=== PATIENT | female | born 1935 | race Two or more races ===

== ENCOUNTER 2019-01-17 11:09 | Emergency (ER) | payer MEDICARE, BC ==
[~2019-01-17] VITALS: Ht 162.6 cm; Wt 54.4 kg
[2019-01-17] MEDS ORDERED: cloNIDine HCL 0.1 MG TABLET PO ONE (11:45)
--- NOTE | 2019-01-17 12:30 | RAD ---
EXAM: CT HEAD WITHOUT IV CONTRAST CLINICAL HISTORY: FALL HEAD/NECK PAIN COMPARISON: None. TECHNIQUE: Routine CT of the head without contrast. Soft tissues and bone windows were reviewed. PQRS compliance statement - One or more of the following individualized dose reduction techniques were utilized for this study: 1. Automated exposure control 2. Adjustment of the mA and/or kV according to patient size 3. Use of iterative reconstruction technique FINDINGS: There is no evidence of hemorrhage, mass or extra-axial fluid collection. Subcortical and periventricular regions of hypoattenuation as well as deep and pontine white matter hypoattenuation likely changes of chronic small vessel disease. There is no mass effect or shift of the intracranial structures. The ventricles, basilar cisterns and cortical sulci are normal in size and configuration for the patients stated age. The cerebellum and brainstem are unremarkable. The calvarium demonstrates no evidence of fracture or focal lesion. There is normal aeration of the visualized paranasal sinuses and mastoid air cells. The visualized portions of the orbits are normal. Marked subcutaneous soft tissue swelling overlying the most left posterior parieto-occipital region with associated scalp hematoma. IMPRESSION: 1. No evidence for acute intracranial process. 2. Left posterior parietal subcutaneous soft tissue swelling and scalp hematoma. EXAM: CT CERVICAL SPINE WITHOUT IV CONTRAST CLINICAL HISTORY: FALL HEAD/NECK PAIN COMPARISON: None available. TECHNIQUE: Helical CT of the cervical spine was performed. Axial, coronal and sagittal reformatted images were also performed. PQRS compliance statement - One or more of the following individualized dose reduction techniques were utilized for this study: 1. Automated exposure control 2. Adjustment of the mA and/or kV according to patient size 3. Use of iterative reconstruction technique FINDINGS: Vertebral body heights are preserved. No evidence for acute fracture. There is moderate disc height loss at C6-7. Associated endplate proliferative changes are seen. No spondylolisthesis. Decreased bone mineral density. Emphysematous changes in the lung apices. Biapical pleural/parenchymal scarring/thickening. C2-C3: No significant central canal stenosis or neural foraminal narrowing C3-C4: Small posterior disc osteophyte complex with posterior disc bulge results in moderate central canal stenosis and mild left neural foraminal narrowing. C4-C5: Small posterior disc osteophyte complex with uncovertebral hypertrophy and facet degenerative changes results in moderate central canal stenosis and mild bilateral neural foraminal narrowing. C5-C6: Small posterior disc osteophyte complex results in mild central canal stenosis and mild bilateral neural foraminal narrowing C6-C7: Posterior disc osteophyte complex with uncovertebral hypertrophy and facet degenerative changes result in moderate central canal stenosis and moderate bilateral neural foraminal narrowing. C7-T1: No significant central canal stenosis or neural foraminal narrowing. IMPRESSION: 1. Negative acute fracture or subluxation. 2. Multilevel spondylosis as above Electronically signed by: Berny Tabor MD (01/17/2019 12:27 PM) [id number]
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
[2019-01-17 14:00] VITALS: BP 127/60
--- NOTE | 2019-01-17 15:27 | EKG ---
[facility] [address] [place] [address] Test Date: 2019-01-17 Test Time: 11:16:45 Pat Name: MADAN LU Department: Room: Gender: F Customer Engagement Manager: : [phone] Requested By: ANNMARIE MUHAMMAD Order Number: [id number] Reading MD: Shakeel Flores MD Measurements Intervals [place] Rate: 86 P: -103 [place]: 94 QRS: 64 QRSD: 80 T: 53 QT: 350 QTc: 421 Interpretive Statements SR Electronically Signed On 01-21-2019 15:48:47 CDT by Shakeel Flores MD
== END 2019-01-17 15:08 | disposition home or self-care (01) ==
LOC: ER 11:09
DX: S00.03XA Contusion of scalp, initial encounter (principal); N18.6 End stage renal disease; I12.0 Hypertensive chronic kidney disease with stage 5 chronic kidney disease or end stage renal disease; Z99.2 Dependence on renal dialysis; Z88.8 Allergy status to other drugs, medicaments and biological substances; W01.0XXA Fall on same level from slipping, tripping and stumbling without subsequent striking against object, initial encounter; Y93.89 Activity, other specified; Y92.89 Other specified places as the place of occurrence of the external cause; Y99.8 Other external cause status
CPT/HCPCS: 70450; 72125; 93005; 99284-25

== ENCOUNTER → 2019-01-22 | Outpatient (CLI) | payer MEDICARE, BC ==
[2019-01-17 14:00] VITALS: BP 127/60
--- NOTE | 2019-01-22 15:51 | RAD ---
EXAM: Left ribs, 4 views. HISTORY: Fall. COMPARISON: None. FINDINGS: 4 views left ribs are obtained. There are suspected mildly displaced posterior left seventh and eighth rib fractures. There are coarse likely chronic interstitial markings within both lungs. There is no pleural effusion or pneumothorax. There is a prominent cardiac silhouette. IMPRESSION: Suspected mildly displaced posterior left seventh and eighth rib fractures. Correlate for point tenderness in this location. Please refer to the separate report for the chest radiograph on the same date for pulmonary findings. Electronically signed by: Nilda Grande MD (01/22/2019 3:48 PM) [place] [id number]
--- NOTE | 2019-01-22 15:55 | RAD ---
EXAM: Chest, 2 views. HISTORY: Pain. COMPARISON: None. FINDINGS: 2 views the chest are obtained. There are coarse likely chronic interstitial markings throughout both lungs. There is no consolidation, pleural effusion or pneumothorax. There is biapical pleural parenchymal scarring. There is a prominent cardiac silhouette. There are calcified granulomas. There is hyperinflation. There are suspected mildly displaced left posterior seventh and eighth rib fractures, of uncertain chronicity. IMPRESSION: 1. Coarse likely chronic increased interstitial markings. The possibility of superimposed interstitial infiltrate is not excluded. 2. Emphysema. 3. Mildly displaced posterior left seventh and eighth rib fractures, of uncertain chronicity. Given a history of recent fall, with point tenderness in this location. Electronically signed by: Nilda Grande MD (01/22/2019 3:52 PM) [facility]
== END | disposition home or self-care (01) ==
LOC: RAD 14:22
PROVIDERS: ATTEND Internal Medicine
DX: S22.42XA Multiple fractures of ribs, left side, initial encounter for closed fracture (principal); J43.9 Emphysema, unspecified; J84.10 Pulmonary fibrosis, unspecified; W19.XXXA Unspecified fall, initial encounter; Y93.89 Activity, other specified; Y92.89 Other specified places as the place of occurrence of the external cause; Y99.8 Other external cause status
CPT/HCPCS: 71046; 71100

== ENCOUNTER 2019-08-02 15:33 | Emergency (ER) | payer MEDICARE, BC ==
[~2019-08-02] VITALS: Ht 162.6 cm; Wt 54.4 kg
--- NOTE | 2019-08-02 16:21 | PHYS DOC ---
Past Medical History Past Medical History: Anemia, Hypertension, Renal Failure Additional Past Medical Histor: DIALYSIS, SHUNT LEFT ARM, (MINDY MEHTA APRN) Past Surgical History: Other Additional Past Surgical Histo: DIALYSIS SHUNT LEFT ARM (MINDY MEHTA APRN) Alcohol Use: None Drug Use: None (MINDY MEHTA APRN) Adult General Chief Complaint Chief Complaint: ABDOMINAL PAIN HPI HPI Patient is a 83 year old female that presents to the ER stating that she is having lower abdominal pain and vaginal bleeding that started 2-3 weeks ago and stopped and started again yesterday. The patient states that over the last day she's not been eating or drinking as she normally has and that she's been feeling intermittent nausea. She rates her pain as 9 out of 10 in severity. The patient also dialysis patient and did have her dialysis yesterday and normally has dialysis on Monday, , and Monday. (MINDY MEHTA APRN) Review of Systems Review of Systems Constitutional: Denies fever or chills [] Eyes: Denies change in visual acuity, redness, or eye pain [] HENT: Denies nasal congestion or sore throat [] Respiratory: Denies cough or shortness of breath [] Cardiovascular: No additional information not addressed in HPI [] GI: Reports abdominal pain, nausea, Denies vomiting, bloody stools or diarrhea [] : Reports vaginal bleeding. Denies dysuria or hematuria [] Musculoskeletal: Denies back pain or joint pain [] Integument: Denies rash or skin lesions [] Neurologic: Denies headache, focal weakness or sensory changes [] Endocrine: Denies polyuria or polydipsia [] Complete systems were reviewed and found to be within normal limits, except as documented in this note. (MINDY MEHTA APRN) Current Medications Current Medications Current Medications Medications (Trade) Dose Ordered Sig/Glenn Start Time Stop Time Status Last Admin Dose Admin Dextrose (Dextrose 50%-Water Syringe) 25 gm 1X ONCE 08/02/19 19:30 08/02/19 19:31 DC 08/02/19 19:57 25 GM Fentanyl Citrate (Fentanyl 2ml Vial) 50 mcg 1X ONCE 08/02/19 16:30 08/02/19 16:31 DC 08/02/19 17:30 50 MCG Insulin Human Regular (HumuLIN R VIAL) 10 unit 1X ONCE 08/02/19 19:30 08/02/19 19:31 DC 08/02/19 20:00 10 UNIT Ondansetron HCl (Zofran) 4 mg 1X ONCE 08/02/19 16:30 08/02/19 16:31 DC 08/02/19 17:32 4 MG Sodium Chloride 500 ml @ 500 mls/hr 1X ONCE 08/02/19 16:30 08/02/19 17:29 DC 08/02/19 16:30 500 MLS/HR (SERA GASPAR MD) Allergies Allergies Allergies Coded Allergies Type Severity Reaction Last Updated Verified adhesive Allergy Mild RASH WERE TAPE WAS APPLIED 01/17/19 Yes (SERA GASPAR MD) Physical Exam Physical Exam Constitutional: Well developed, well nourished, no acute distress, non-toxic appearance. [] HENT: Normocephalic, atraumatic, bilateral external ears normal, oropharynx moist, no oral exudates, nose normal. [] Eyes: PERRLA, EOMI, conjunctiva normal, no discharge. [] Neck: Normal range of motion, no tenderness, supple, no stridor. [] Cardiovascular:Heart rate regular rhythm, no murmur [] Lungs & Thorax: Bilateral breath sounds clear to auscultation [] Abdomen: Bowel sounds normal, soft, diffuse lower abdominal tenderness and can feel a mass, no pulsatile masses. [] Skin: Warm, dry, no erythema, no rash. [] Back: No tenderness, no CVA tenderness. [] Extremities: No tenderness, no cyanosis, no clubbing, ROM intact, no edema. [] Neurologic: Alert and oriented X 3, normal motor function, normal sensory function, no focal deficits noted. [] Psychologic: Affect normal, judgement normal, mood normal. [] (MINDY MEHTA APRN) Current Patient Data Vital Signs Vital Signs Date Time Temp Pulse Resp B/P (MAP) Pulse Ox O2 Delivery O2 Flow Rate FiO2 08/02/19 19:56 72 16 169/75 (106) 99 Nasal Cannula 2.0 08/02/19 16:24 97.5 97.5 (SERA GASPAR MD) Lab Values Laboratory Tests Test 08/02/19 17:35 White Blood Count 13.0 x10^3/uL (4.0-11.0) H Red Blood Count 3.06 x10^6/uL (3.50-5.40) L Hemoglobin 10.0 g/dL (12.0-15.5) L Hematocrit 30.5 % (36.0-47.0) L Mean Corpuscular Volume 100 fL (79-100) Mean Corpuscular Hemoglobin 33 pg (25-35) Mean Corpuscular Hemoglobin Concent 33 g/dL (31-37) Red Cell Distribution Width 14.6 % (11.5-14.5) H Platelet Count 247 x10^3/uL (140-400) Neutrophils (%) (Auto) 92 % (31-73) H Lymphocytes (%) (Auto) 5 % (24-48) L Monocytes (%) (Auto) 2 % (0-9) Eosinophils (%) (Auto) 0 % (0-3) Basophils (%) (Auto) 0 % (0-3) Neutrophils # (Auto) 12.0 x10^3/uL (1.8-7.7) H Lymphocytes # (Auto) 0.7 x10^3/uL (1.0-4.8) L Monocytes # (Auto) 0.3 x10^3/uL (0.0-1.1) Eosinophils # (Auto) 0.0 x10^3/uL (0.0-0.7) Basophils # (Auto) 0.0 x10^3/uL (0.0-0.2) Segmented Neutrophils % 72 % (35-66) H Band Neutrophils % 17 % (0-9) H Lymphocytes % 8 % (24-48) L Monocytes % 1 % (0-10) Basophils % 1 % (0-3) Myelocytes % 1 % (0-0) H Platelet Estimate Adequate (ADEQUATE) Prothrombin Time 14.0 SEC (11.7-14.0) Prothrombin Time INR 1.1 (0.8-1.1) Activated Partial Thromboplast Time 31 SEC (24-38) Sodium Level 138 mmol/L (136-145) Potassium Level 5.7 mmol/L (3.5-5.1) H Chloride Level 107 mmol/L (98-107) Carbon Dioxide Level 21 mmol/L (21-32) Anion Gap 10 (6-14) Blood Urea Nitrogen 39 mg/dL (7-20) H Creatinine 3.5 mg/dL (0.6-1.0) H Estimated GFR (Cockcroft-Gault) 12.4 BUN/Creatinine Ratio 11 (6-20) Glucose Level 170 mg/dL (70-99) H Calcium Level 9.2 mg/dL (8.5-10.1) Total Bilirubin 0.4 mg/dL (0.2-1.0) Aspartate Amino Transferase (AST) 14 U/L (15-37) L Alanine Aminotransferase (ALT) 15 U/L (14-59) Alkaline Phosphatase 97 U/L (46-116) Total Protein 7.3 g/dL (6.4-8.2) Albumin 3.6 g/dL (3.4-5.0) Albumin/Globulin Ratio 1.0 (1.0-1.7) Laboratory Tests 08/02/19 17:35 Laboratory Tests 08/02/19 17:35 (SERA GASPAR MD) Lab Values Laboratory Tests Test 08/02/19 17:35 White Blood Count 13.0 x10^3/uL (4.0-11.0) H Red Blood Count 3.06 x10^6/uL (3.50-5.40) L Hemoglobin 10.0 g/dL (12.0-15.5) L Hematocrit 30.5 % (36.0-47.0) L Mean Corpuscular Volume 100 fL (79-100) Mean Corpuscular Hemoglobin 33 pg (25-35) Mean Corpuscular Hemoglobin Concent 33 g/dL (31-37) Red Cell Distribution Width 14.6 % (11.5-14.5) H Platelet Count 247 x10^3/uL (140-400) Neutrophils (%) (Auto) 92 % (31-73) H Lymphocytes (%) (Auto) 5 % (24-48) L Monocytes (%) (Auto) 2 % (0-9) Eosinophils (%) (Auto) 0 % (0-3) Basophils (%) (Auto) 0 % (0-3) Neutrophils # (Auto) 12.0 x10^3/uL (1.8-7.7) H Lymphocytes # (Auto) 0.7 x10^3/uL (1.0-4.8) L Monocytes # (Auto) 0.3 x10^3/uL (0.0-1.1) Eosinophils # (Auto) 0.0 x10^3/uL (0.0-0.7) Basophils # (Auto) 0.0 x10^3/uL (0.0-0.2) Segmented Neutrophils % 72 % (35-66) H Band Neutrophils % 17 % (0-9) H Lymphocytes % 8 % (24-48) L Monocytes % 1 % (0-10) Basophils % 1 % (0-3) Myelocytes % 1 % (0-0) H Platelet Estimate Adequate (ADEQUATE) Prothrombin Time 14.0 SEC (11.7-14.0) Prothrombin Time INR 1.1 (0.8-1.1) Activated Partial Thromboplast Time 31 SEC (24-38) Sodium Level 138 mmol/L (136-145) Potassium Level 5.7 mmol/L (3.5-5.1) H Chloride Level 107 mmol/L (98-107) Carbon Dioxide Level 21 mmol/L (21-32) Anion Gap 10 (6-14) Blood Urea Nitrogen 39 mg/dL (7-20) H Creatinine 3.5 mg/dL (0.6-1.0) H Estimated GFR (Cockcroft-Gault) 12.4 BUN/Creatinine Ratio 11 (6-20) Glucose Level 170 mg/dL (70-99) H Calcium Level 9.2 mg/dL (8.5-10.1) Total Bilirubin 0.4 mg/dL (0.2-1.0) Aspartate Amino Transferase (AST) 14 U/L (15-37) L Alanine Aminotransferase (ALT) 15 U/L (14-59) Alkaline Phosphatase 97 U/L (46-116) Total Protein 7.3 g/dL (6.4-8.2) Albumin 3.6 g/dL (3.4-5.0) Albumin/Globulin Ratio 1.0 (1.0-1.7) Laboratory Tests 08/02/19 17:35 Laboratory Tests 08/02/19 17:35 (MINDY MEHTA APRN) EKG EKG [] (MINDY MEHTA APRN) Radiology/Procedures Radiology/Procedures [[facility] [address] [place] [address] IMAGING REPORT Signed PATIENT: MADAN LU ACCOUNT: [id number] : 1935 LOCATION: ER AGE: 83 SEX: F EXAM STATUS: REG ER ORD. PHYSICIAN: MINDY MEHTA APRN REASON: pelvic pain, vaginal bleeding. PROCEDURE: PELVIS ULTRASOUND Complete pelvic ultrasound HISTORY: Pelvic pain. Vaginal bleeding. 83-year-old post menopausal female. TECHNIQUE: Transabdominal transducer with grayscale and color Doppler sonography. FINDINGS: Uterus is prominently distended with a hypoechoic solid-appearing mass with posterior enhancement, the mass measures 9.6 x 7.0 x 7.7 cm, no internal blood flow the mass documented by color Doppler sonography. The bladder around the mass is filled with urine and measures 12.4 x 8.7 x 10.7 cm with an approximate estimated volume of 580 mL. Anteverted uterus measures 6.8 x 3.1 x 1.4 cm and is somewhat compressed by the distended bladder and its mass. Endometrium poorly visualized with an approximate thickness of 0.3 cm which is normal. Ovaries not visualized. No pelvic fluid. IMPRESSION: Distention of the urinary bladder with a hypoechoic mass which measures 9.6 x 7.0 x 7.7 cm. No internal blood flow of the masses documented by color Doppler sonography. Differential diagnosis includes large hematoma, fungus ball or bladder malignancy. Electronically signed by: Michael Louie MD (08/02/2019 4:50 PM) [facility] DICTATED and SIGNED BY: MICHAEL LOUIE MD DATE: 08/02/191649 ] Signed PATIENT: MADAN LU ACCOUNT: [id number] : 1935 LOCATION: ER AGE: 83 SEX: F EXAM STATUS: REG ER ORD. PHYSICIAN: MINDY MEHTA APRN REASON: abd pain, vaginal bleeding PROCEDURE: CT ABDOMEN PELVIS WO CONTRAST CT abdomen and pelvis without contrast PQRS statement: CT scans at this facility use dose reduction including either automated exposure control, iterative reconstructions, and /or weight based radiation dosing via mA and kV modification when appropriate to reduce radiation dose to as low as reasonably achievable. HISTORY: Abdominal pain and vaginal bleeding. COMPARISON: Pelvic ultrasound August 02, 2019. TECHNIQUE: Noncontrast imaging abdomen and pelvis was acquired. Abdomen findings: Gallstones. Liver, spleen, pancreas, adrenal glands and pancreas are unremarkable. Right renal midpole exophytic 2.5 cm lesion density of 30 units indeterminate with a smaller 1 cm similar density lesion at the upper pole could be hemorrhagic cysts or solid masses. Similar indeterminate dense lesion left renal midpole measuring 1.5 cm image 28. 3 cm fluid density cyst left renal upper pole density 20 units. There is chronic severe left renal hydronephrosis with marked atrophy of the parenchyma and prominent dilation of the pelvis with a diameter of 4 cm and prominent dilation of the ureter down to the bladder. No urinary calculi. Extensive aortoiliac calcified plaque. Sigmoid diverticulosis. Appendix is negative. No obstruction or inflammation the GI tract. Pelvis findings: Large heterogeneous dense mass fills most of the bladder with a maximum diameter of 10 cm. No bladder calculi. Uterus, ovaries, rectum and bones are unremarkable. IMPRESSION: 1. 10 cm heterogeneous dense mass fills the bladder likely hematoma. An underlying urothelial malignant lesion obscured by the hemorrhage is possible. 2. Severe chronic left renal hydronephrosis with marked dilation of the renal pelvis and ureter leading up to the ureterovesical junction, raising concern for obstruction from a poorly visualized urothelial tumor likely obscured by the bladder hemorrhage. 3. Bilateral fluid density renal cysts as well as indeterminate hyperdense lesions which could be hemorrhagic cyst or solid masses. These could be further assessed with outpatient renal sonography. 4. Cholelithiasis. 5. Appendix is negative. Electronically signed by: Michael Louie MD (08/02/2019 6:22 PM) [facility] DICTATED and SIGNED BY: MICHAEL LOUIE MD DATE: 08/02/19 182 (MINDY MEHTA APRN) Course & Med Decision Making Course & Med Decision Making Pertinent Labs and Imaging studies reviewed. (See chart for details) Will get labs, ultrasound, and CT. Will also give supportive care. Discussed with patient and she states if she needs to be admitted then she wants to be a partial code with no tubes but wants compressions. CT and Ultrasound have concern for bladder mass. Discussed with [facility] who agrees to accept transfer to their service as we do not have urology. Accepting Physician is Dr. Rama Posadas. Labs show a potassium of 5.7. Will give 10 U of insulin and D50 before going to lower potassium. (MINDY MEHTA APRN) Course & Med Decision Making I was not involved in the care of this patient after 100 on 08/02/19. (SERA GASPAR MD) Dragon Disclaimer Dragon Disclaimer This electronic medical record was generated, in whole or in part, using a voice recognition dictation system. (MINDY MEHTA APRN) Departure Departure Impression: Primary Impression: Bladder mass Additional Impression: Acute hyperkalemia Disposition: 05 TRANSFER OTHER ([facility]) Condition: GUARDED Referrals: MINDY ELDER MD (PCP) Problem Qualifiers MINDY MEHTA APRN Aug 02, 2019 16:20 SERA GASPAR MD Aug 03, 2019 18:16
[2019-08-02] MEDS ORDERED: IV NORMAL SALINE 500ML BAG 500 ML IV ONE (16:30)
[2019-08-02] MEDS ORDERED: fentaNYL PF VIAL 100 MCG/2 ML VIAL IV ONE (16:30)
[2019-08-02] MEDS ORDERED: ONDANSETRON PF 4 MG/2 ML VIAL. IV ONE (16:30)
--- NOTE | 2019-08-02 16:52 | RAD ---
Complete pelvic ultrasound HISTORY: Pelvic pain. Vaginal bleeding. 83-year-old post menopausal female. TECHNIQUE: Transabdominal transducer with grayscale and color Doppler sonography. FINDINGS: Uterus is prominently distended with a hypoechoic solid-appearing mass with posterior enhancement, the mass measures 9.6 x 7.0 x 7.7 cm, no internal blood flow the mass documented by color Doppler sonography. The bladder around the mass is filled with urine and measures 12.4 x 8.7 x 10.7 cm with an approximate estimated volume of 580 mL. Anteverted uterus measures 6.8 x 3.1 x 1.4 cm and is somewhat compressed by the distended bladder and its mass. Endometrium poorly visualized with an approximate thickness of 0.3 cm which is normal. Ovaries not visualized. No pelvic fluid. IMPRESSION: Distention of the urinary bladder with a hypoechoic mass which measures 9.6 x 7.0 x 7.7 cm. No internal blood flow of the masses documented by color Doppler sonography. Differential diagnosis includes large hematoma, fungus ball or bladder malignancy. Electronically signed by: Srini Louie MD (08/02/2019 4:50 PM) [facility]
[2019-08-02 17:51] LABS: BASO % 0 % (0-3); EOS % 0 % (0-3); HEMATOCRIT 30.5 % (36.0-47.0); LYMPH # 0.7 x10^3/uL (1.0-4.8); LYMPH % 5 % (24-48); MEAN CORPUSCULAR HEMOGLOBIN 33 pg (25-35); MEAN CORPUSCULAR HGB CONC 33 g/dL (31-37); MEAN CORPUSCULAR VOLUME 100 fL (79-100); MONO # 0.3 x10^3/uL (0.0-1.1); MONO % 2 % (0-9); NEUT % 92 % (31-73); PLATELET COUNT 247 x10^3/uL (140-400); RED BLOOD COUNT 3.06 x10^6/uL (3.50-5.40); RED CELL DISTRIBUTION WIDTH 14.6 % (11.5-14.5)
[2019-08-02 17:55] LABS: CALCIUM 9.2 mg/dL (8.5-10.1); CREATININE 3.5 mg/dL (0.6-1.0); GFR 12.4; POTASSIUM 5.7 mmol/L (3.5-5.1)
[2019-08-02 18:01] LABS: ALBUMIN 3.6 g/dL (3.4-5.0); TOTAL BILIRUBIN 0.4 mg/dL (0.2-1.0); TOTAL PROTEIN 7.3 g/dL (6.4-8.2)
--- NOTE | 2019-08-02 18:25 | RAD ---
CT abdomen and pelvis without contrast PQRS statement: CT scans at this facility use dose reduction including either automated exposure control, iterative reconstructions, and /or weight based radiation dosing via mA and kV modification when appropriate to reduce radiation dose to as low as reasonably achievable. HISTORY: Abdominal pain and vaginal bleeding. COMPARISON: Pelvic ultrasound August 02, 2019. TECHNIQUE: Noncontrast imaging abdomen and pelvis was acquired. Abdomen findings: Gallstones. Liver, spleen, pancreas, adrenal glands and pancreas are unremarkable. Right renal midpole exophytic 2.5 cm lesion density of 30 units indeterminate with a smaller 1 cm similar density lesion at the upper pole could be hemorrhagic cysts or solid masses. Similar indeterminate dense lesion left renal midpole measuring 1.5 cm image 28. 3 cm fluid density cyst left renal upper pole density 20 units. There is chronic severe left renal hydronephrosis with marked atrophy of the parenchyma and prominent dilation of the pelvis with a diameter of 4 cm and prominent dilation of the ureter down to the bladder. No urinary calculi. Extensive aortoiliac calcified plaque. Sigmoid diverticulosis. Appendix is negative. No obstruction or inflammation the GI tract. Pelvis findings: Large heterogeneous dense mass fills most of the bladder with a maximum diameter of 10 cm. No bladder calculi. Uterus, ovaries, rectum and bones are unremarkable. IMPRESSION: 1. 10 cm heterogeneous dense mass fills the bladder likely hematoma. An underlying urothelial malignant lesion obscured by the hemorrhage is possible. 2. Severe chronic left renal hydronephrosis with marked dilation of the renal pelvis and ureter leading up to the ureterovesical junction, raising concern for obstruction from a poorly visualized urothelial tumor likely obscured by the bladder hemorrhage. 3. Bilateral fluid density renal cysts as well as indeterminate hyperdense lesions which could be hemorrhagic cyst or solid masses. These could be further assessed with outpatient renal sonography. 4. Cholelithiasis. 5. Appendix is negative. Electronically signed by: Srini Louie MD (08/02/2019 6:22 PM) [facility]
[2019-08-02 19:16] LABS: % BANDS 17 % (0-9); % BASOS 1 % (0-3); % LYMPHS 8 % (24-48); % MONOS 1 % (0-10); % MYELOS 1 % (0-0); % SEGS 72 % (35-66)
[2019-08-02 19:17] LABS: PLT ESTIMATE ADEQUATE (ADEQUATE)
[2019-08-02] MEDS ORDERED: INSULIN REGULAR 100 UNIT/ML 3ML VIAL. IV ONE (19:30)
[2019-08-02] MEDS ORDERED: DEXTROSE 50% 25 GM / 50ML DISP.SYRIN. IV ONE (19:30)
[2019-08-02 19:56] VITALS: BP 169/75
== END 2019-08-02 20:30 | disposition short-term general hospital (02) ==
LOC: ER 15:33
DX: N32.9 Bladder disorder, unspecified (principal); E87.5 Hyperkalemia; I10 Essential (primary) hypertension; R11.0 Nausea; Z88.8 Allergy status to other drugs, medicaments and biological substances
CPT/HCPCS: 36415; 74176; 76856; 80053; 85007; 85025; 85610; 85730; 96374; 96375; 99285; J1815; J2405; J3010; J7040; J7042